=== PATIENT | female | born 1970 | race Caucasian/White ===

== ENCOUNTER 2019-09-10 05:59 | Inpatient (IN) | payer OTHER ==
[~2019-09-10] VITALS: Ht 165.1 cm; Wt 85.3 kg
[2019-09-10 06:36] VITALS: BP 115/80
[2019-09-10 09:32] VITALS: BP 102/56
[2019-09-10 10:12] VITALS: BP 104/68
[2019-09-10 11:58] VITALS: BP 110/63
[2019-09-10 16:41] VITALS: BP 116/68
[2019-09-10 19:17] VITALS: BP 122/67
[2019-09-11 05:09] VITALS: BP 128/65
[2019-09-11 06:36] LABS: BASOPHIL % 0.2 % (0-2); PLATELET COUNT 288 x10^3mcL (130-400)
[2019-09-11 08:21] VITALS: BP 111/62
[2019-09-11 12:09] VITALS: BP 109/64
[2019-09-11 15:43] VITALS: BP 103/62
[2019-09-11 16:10] VITALS: BP 103/62
[2019-09-11 19:30] VITALS: BP 122/77
[2019-09-12 05:47] VITALS: BP 123/81
[2019-09-12 08:05] VITALS: BP 132/85
[2019-09-12 11:54] VITALS: BP 134/87
[2019-09-12 13:25] VITALS: BP 134/87
== END 2019-09-12 15:38 | disposition home or self-care (01) | DRG 513 ==
LOC: MU 05:59
PROVIDERS: ADMIT Obstetrics & Gynecology
PROC: 0UT20ZZ Resection of Bilateral Ovaries, Open Approach (ICD-10-PCS; 2019-09-10)
PROC: 0UT90ZZ Resection of Uterus, Open Approach (ICD-10-PCS; principal; 2019-09-10 07:30)
DX: D06.0 Carcinoma in situ of endocervix (principal)
CPT/HCPCS: G0378; J0690; J1170; J2270; J2405; J3010; J3490; J8597